=== PATIENT | male | born 1955 | race Caucasian/White ===

== ENCOUNTER 2023-03-11 14:18 | Observation (INO) | payer MEDICARE, BC ==
[2023-03-11] MEDS ORDERED: Iopamidol 755 MG/ML 500 ML Multipack Bottle IVPUSH STA (14:32)
[2023-03-11 14:33] LABS: BASOPHILS PERCENT AUTO 0.1 % (0.0-1.5); EOSINOPHILS ABSOLUTE AUTO 0.1 K/uL (0.0-0.7); EOSINOPHILS PERCENT AUTO 1.3 % (0.0-7.0); HEMATOCRIT 49.7 % (38.0-50.0); HEMOGLOBIN 16.7 g/dL (13.0-17.0); LYMPHOCYTES ABSOLUTE AUTO 1.5 K/uL (0.6-2.4); LYMPHOCYTES PERCENT AUTO 20.6 % (16.0-40.0); MEAN CORPUSCULAR HEMOGLOBIN 31.8 pg (27.0-32.0); MEAN CORPUSCULAR HGB CONC 33.6 g/dL (31.0-37.0); MEAN CORPUSCULAR VOLUME 94.7 fL (80.0-98.0); MONOCYTES ABSOLUTE AUTO 0.6 K/uL (0.0-0.8); MONOCYTES PERCENT AUTO 7.7 % (0.0-15.0); NEUTROPHILS PERCENT AUTO 70.3 % (48.0-80.0); NRBC ABSOLUTE 0 K/uL; PLATELET COUNT,PLT 239 K/uL (150-400); RED BLOOD CELL COUNT 5.25 M/uL (4.50-5.90); WHITE BLOOD CELL COUNT,WBC 7.14 K/uL (4.0-11.0)
[2023-03-11 14:48] LABS: PTT,PARTIAL THROMBOPLSTIN TIME 29.9 SEC (23.9-30.7)
[2023-03-11 14:56] LABS: ALANINE AMINOTRANSFERASE,ALT 22 IU/L (14-63); ALBUMIN 3.8 g/dL (3.4-5.0); ALKALINE PHOSPHATASE 91 U/L (46-116); ASPARTATE AMNIOTRANSFERASE,AST 15 IU/L (15-37); BILIRUBIN TOTAL 0.4 mg/dL (0.2-1.0); BLOOD UREA NITROGEN,BUN 15 mg/dL (7.0-18.0); CALCIUM 8.5 mg/dL (8.5-10.1); CARBON DIOXIDE,CO2 28.9 mmol/L (21.0-32.0); CHLORIDE,CL 101 mmol/L (98-107); CREATININE 1.2 mg/dL (0.8-1.3); GLUCOSE RANDOM 124 mg/dL (74-106); MAGNESIUM 1.9 mg/dL (1.8-2.4); POTASSIUM,K 4.2 mmol/L (3.5-5.1); PROTEIN TOTAL,TP 7.7 g/dL (6.4-8.2); SODIUM,NA 137 mmol/L (136-148)
[2023-03-11 14:57] LABS: ESTIMATED GFR 66 mL/min (>60)
[2023-03-11] MEDS ORDERED: Clopidogrel 75 MG Tab PO ONE (15:37)
[2023-03-11] MEDS ORDERED: Aspirin 325 MG Tab PO ONE (15:49)
[2023-03-11] MEDS ORDERED: Ondansetron 4 MG/2 ML SDV IVPUSH PRN (16:30)
[2023-03-11] MEDS ORDERED: Sodium Chloride 0.9% 2.5 ML Syringe FLUSH PRN (16:30)
[2023-03-11] MEDS ORDERED: Polyethylene Glycol 3350 Powder 17 GM Packet PO PRN (16:30)
[2023-03-11] MEDS ORDERED: Acetaminophen 325 MG Tab PO PRN (16:30)
[2023-03-11] MEDS ORDERED: Sodium Chloride 0.9% 10 ML Syringe FLUSH PRN (16:30)
[2023-03-11] MEDS ORDERED: Lisinopril 5 MG Tab PO SCH (16:30)
[2023-03-11] MEDS: Lisinopril 5 MG Tab PO SCH (17:02)
[2023-03-11] MEDS ORDERED: Docusate Sodium 100 MG Cap PO PRN (21:00)
[2023-03-11] MEDS ORDERED: Aspirin 325 MG Tab PO SCH (21:00)
[2023-03-11] MEDS ORDERED: atorvaSTATin 40 MG Tab PO SCH (21:00)
[2023-03-11 21:51] LABS: APPEARANCE,URINE CLEAR; BILIRUBIN,URINE NEGATIVE (NEGATIVE); COLOR,URINE YELLOW; GLUCOSE,URINE NEGATIVE (NEGATIVE); KETONES,URINE NEGATIVE (NEGATIVE); LEUKOCYTE ESTERASE,URINE NEGATIVE (NEGATIVE); NITRITE,URINE NEGATIVE (NEGATIVE); OCCULT BLOOD,URINE NEGATIVE (NEGATIVE); PROTEIN,URINE NEGATIVE (NEGATIVE); UROBILINOGEN,URINE 0.2 EU/dL (<2.0)
[2023-03-12 06:11] LABS: BASOPHILS PERCENT AUTO 0.1 % (0.0-1.5); EOSINOPHILS ABSOLUTE AUTO 0.1 K/uL (0.0-0.7); EOSINOPHILS PERCENT AUTO 1.8 % (0.0-7.0); HEMATOCRIT 48.1 % (38.0-50.0); HEMOGLOBIN 16.5 g/dL (13.0-17.0); LYMPHOCYTES ABSOLUTE AUTO 1.3 K/uL (0.6-2.4); LYMPHOCYTES PERCENT AUTO 17.9 % (16.0-40.0); MEAN CORPUSCULAR HEMOGLOBIN 32.3 pg (27.0-32.0); MEAN CORPUSCULAR HGB CONC 34.3 g/dL (31.0-37.0); MEAN CORPUSCULAR VOLUME 94.1 fL (80.0-98.0); MONOCYTES ABSOLUTE AUTO 0.6 K/uL (0.0-0.8); MONOCYTES PERCENT AUTO 7.8 % (0.0-15.0); NEUTROPHILS ABSOLUTE AUTO 5.2 K/uL (1.4-5.7); NEUTROPHILS PERCENT AUTO 72.4 % (48.0-80.0); NRBC ABSOLUTE 0 K/uL; PLATELET COUNT,PLT 225 K/uL (150-400); RED BLOOD CELL COUNT 5.11 M/uL (4.50-5.90); WHITE BLOOD CELL COUNT,WBC 7.22 K/uL (4.0-11.0)
[2023-03-12 06:28] LABS: HEMOGLOBIN A1C 5.3 %
[2023-03-12] MEDS: Pantoprazole 40 MG Tab.CR PO SCH ×2 (06:28→08:17)
[2023-03-12 06:44] LABS: CALCIUM 8.6 mg/dL (8.5-10.1); CARBON DIOXIDE,CO2 26.6 mmol/L (21.0-32.0); EST CRCL DRUG DOSING (CG) 77.6 mL/min; POTASSIUM,K 3.9 mmol/L (3.5-5.1); TSH ULTRASENSITIVE 4.52 uIU/mL (0.36-3.74)
[2023-03-12 07:06] LABS: T4 FREE 0.87 ng/dL (0.76-1.46)
[2023-03-12] MEDS ORDERED: Enoxaparin 40 MG/0.4 ML Syringe SUBCUT SCH (09:00)
[2023-03-12] MEDS ORDERED: Clopidogrel 75 MG Tab PO SCH (09:00)
[2023-03-12] MEDS ORDERED: Aspirin 81 MG Tab.Chew PO SCH (09:00)
[2023-03-12 09:11] VITALS: PULSE 63
[2023-03-12] MEDS: Lisinopril 5 MG Tab PO SCH (10:06)
[2023-03-12 12:10] VITALS: BP 148/88
== END 2023-03-12 12:25 | disposition home or self-care (01) ==
LOC: MW.ED 14:18 → MW.MS 15:56
PROVIDERS: ADMIT Internal Medicine; ATTEND Internal Medicine
DX: I63.9 Cerebral infarction, unspecified (principal); R41.0 Disorientation, unspecified; I10 Essential (primary) hypertension; F12.90 Cannabis use, unspecified, uncomplicated; Z79.02 Long term (current) use of antithrombotics/antiplatelets; Z79.82 Long term (current) use of aspirin; Z79.899 Other long term (current) drug therapy
CPT/HCPCS: 36415; 70450; 70496; 70498; 80048; 80053; 80061; 81003; 83036; 83735; 84439; 84443; 84484; 85025; 85610; 85730; 93005; 93246; 93306; 96372; 97161; 97165; 99285; A9270; G0378; J1650; Q9967; 93010; 99233; 99284

== ENCOUNTER 2023-07-16 08:04 | Day surgery (SDC) | payer MEDICARE, BC ==
[~2023-07-16 08:04] MED LIST: Lactated Ringers 1,000 ML IV SCH
[2023-07-16] MEDS ORDERED: Propofol 200 MG/20 ML SDV ONE ×3 (09:08→10:31)
[2023-07-16] MEDS ORDERED: propofoL 50 ML ONE (09:23)
[2023-07-16] MEDS ORDERED: Glycopyrrolate 0.2 MG/ML SDV ONE (09:52)
[2023-07-16] MEDS ORDERED: ePHEDrine 50 MG/ML SDV ONE ×2 (09:52→10:54)
[2023-07-16] MEDS ORDERED: Lidocaine 2% 11 ML Jelly Filled Syringe ONE (09:55)
[2023-07-16] MEDS ORDERED: Lidocaine 2% 5 ML SDV ONE (09:55)
[2023-07-16] MEDS ORDERED: fentaNYL 100 MCG/2 ML SDV ONE (10:41)
[2023-07-16] MEDS ORDERED: Ondansetron 4 MG/2 ML SDV ONE (10:41)
[2023-07-16 14:39] VITALS: BP 114/65; PULSE 84
== END 2023-07-16 11:40 | disposition home or self-care (01) ==
LOC: MW.SDS 08:04
PROVIDERS: ATTEND Surgery
DX: Z12.11 Encounter for screening for malignant neoplasm of colon (principal); K63.2 Fistula of intestine; K57.30 Diverticulosis of large intestine without perforation or abscess without bleeding; K63.5 Polyp of colon; D12.2 Benign neoplasm of ascending colon; D12.6 Benign neoplasm of colon, unspecified; R19.5 Other fecal abnormalities; I67.2 Cerebral atherosclerosis; I63.81 Other cerebral infarction due to occlusion or stenosis of small artery; I10 Essential (primary) hypertension; I66.09 Occlusion and stenosis of unspecified middle cerebral artery; Z79.899 Other long term (current) drug therapy
CPT/HCPCS: 45380; 45381; 45385; 88305; J2405; J2704; J3010; J3490; J7120; 00811; A9270-GY

== ENCOUNTER 2024-09-20 09:08 | Day surgery (SDC) | payer MEDICARE, BC ==
[2024-09-20] MEDS ORDERED: propofoL 500 MG/50 ML 50 ML ONE (09:58)
[2024-09-20] MEDS ORDERED: Lidocaine 2% 5 ML SDV ONE (09:58)
[2024-09-20] MEDS: Lactated Ringers 1,000 ML IV SCH (10:31)
[2024-09-20 13:12] VITALS: BP 122/64; PULSE 60
== END 2024-09-20 12:15 | disposition home or self-care (01) ==
LOC: MW.SDS 09:08
PROVIDERS: ATTEND Surgery
DX: Z12.11 Encounter for screening for malignant neoplasm of colon (principal); K63.5 Polyp of colon; K57.30 Diverticulosis of large intestine without perforation or abscess without bleeding; Z86.0100 Personal history of colon polyps, unspecified; I10 Essential (primary) hypertension; E78.00 Pure hypercholesterolemia, unspecified; Z85.038 Personal history of other malignant neoplasm of large intestine; Z79.82 Long term (current) use of aspirin; Z79.899 Other long term (current) drug therapy; Z91.030 Bee allergy status
CPT/HCPCS: 45380; 45385; J2003; J2704; J7120; 00811; 88305